=== PATIENT | female | born 1975 | race Caucasian/White ===

== ENCOUNTER → 2018-01-03 | Outpatient (CLI) | payer BC ==
[~2018-01-03] MED LIST: CATHETER FLUSH 10 ML SYR IV PRN; IOHEXOL 350 MG/ML 100 ML (OMNIPAQUE 350) VIAL IV ONE; NS 250 ML (IVPB) BAG IV ONE; RECEIVED CONTRAST (Hold Metformin) IV SCH
--- NOTE | 2018-01-03 11:18 | Diagnostic Imaging Report ---
PROCEDURE: CT chest with and without contrast. TECHNIQUE: Multiple contiguous axial images were obtained through the chest before and after administration of intravenous contrast. INDICATION: Pleural effusion and peripheral edema and cough. No prior studies are available for comparison. No axillary lymphadenopathy is detected. No definite hilar or mediastinal lymphadenopathy is detected. No pericardial or pleural fluid is identified. Central airways are widely patent. Parenchymal evaluation demonstrates the lungs to be clear. No infiltrate is identified. No parenchymal nodule or mass is identified. The upper abdomen does show a left adrenal mass measuring 2.3 cm in diameter. This is low density on the precontrast image and likely an adenoma. Followup to confirm stability could be performed. IMPRESSION: 1. Essentially unremarkable CT of the chest. No thoracic lymphadenopathy or evidence of parenchymal mass or infiltrate is seen. 2. Left adrenal mass, suggestive of an adenoma. Followup in 4-6 months could be performed to confirm stability. Dictated by: Dictated on workstation # [id number]
== END ==
LOC: RAD 10:33
PROVIDERS: ATTEND Nurse Practitioner Primary Care
DX: E27.8 Other specified disorders of adrenal gland (principal); J90 Pleural effusion, not elsewhere classified; M35.00 Sjogren syndrome, unspecified
CPT/HCPCS: 71270; 93306

== ENCOUNTER → 2018-01-09 | Outpatient (CLI) | payer BC ==
[~2018-01-09] MED LIST changes: -IOHEXOL 350 MG/ML 100 ML (OMNIPAQUE 350) VIAL IV ONE; -NS 250 ML (IVPB) BAG IV ONE; -RECEIVED CONTRAST (Hold Metformin) IV SCH
--- NOTE | 2018-01-09 19:19 | Diagnostic Imaging Report ---
EXAMINATION: Ultrasound of the left breast, limited. INDICATION: Abnormal mammogram. FINDINGS: The baseline screening mammogram performed on 12/20/2017 noted an area of increased density in the upper left breast at posterior depth. This is only seen on the MLO view. The diagnostic mammogram performed earlier today failed to show any sign of malignancy in this region. On this study, there is no discrete solid or cystic mass in the superior half of the breast to correspond to the finding of the screening mammogram. I do suspect that the density seen on the screening mammogram was secondary to fibroglandular tissue alone. Even so, as there are no prior studies available for comparison, it may prove worthwhile to have a short-term (six-month) followup mammogram for continued study. During my conversation with the patient regarding the results of this exam, she noted that she had a soft tissue fullness along the inferomedial aspect of the left breast. The patient related that she had NOT undergone a breast physical exam by her physician or her physician's assistant maintenance manager. In reviewing the mammogram, there was no abnormality in this area. Even so, I would recommend that either the patient's physician or physician's assistant maintenance manager evaluate both breasts by physical exam. IMPRESSION: 1. The area of increased density seen on the screening mammogram could not be identified on this study. Most likely that finding is related to fibroglandular tissue alone. Recommendations as above. 2. The patient should have a breast physical exam either by her physician or her physician's assistant maintenance manager. ACR BI-RADS Category 3: Probably benign findings. Dictated by: Dictated on workstation # [id number]
--- NOTE | 2018-01-10 22:37 | Diagnostic Imaging Report ---
Unilateral diagnostic left mammogram. The current study was also evaluated with a Computer Aided Detection (CAD) system. FINDINGS: The baseline screening mammogram on 12/20/2017 noted a density in the upper aspect of the left breast at posterior depth. This was only seen on the MLO view. On the compression view of this area, the area in question does not seem as conspicuous. This finding seems to be related to fibroglandular tissue on the ML view. I would recommend that ultrasound be performed to better characterize this density. IMPRESSION: There is no evidence for malignancy. Ultrasound will be recommended for further study. ACR BI-RADS Category 0: Incomplete. (Needs additional imaging evaluation). Result letter will be mailed to the patient. Note: At least 10% of breast cancer is not imaged by mammography. Dictated by: Dictated on workstation # [id number]
== END ==
LOC: RAD 11:51
PROVIDERS: ATTEND Nurse Practitioner Primary Care
DX: N63.20 Unspecified lump in the left breast, unspecified quadrant (principal); R10.11 Right upper quadrant pain
CPT/HCPCS: 76642